=== PATIENT | female | born 1985 | race Caucasian/White ===

== ENCOUNTER 2024-10-16 14:12 | Outpatient (REF) | payer BC, SELFPAY ==
[2024-10-16 14:48] LABS: Albumin* 4.6 g/dL (3.3-5.0)
[2024-10-16 14:51] LABS: Alanine Aminotransferase* 15 U/L (4-35); Alkaline Phosphatase* 61 U/L (40-150); Aspartate Amino Transferase* 24 U/L (12-35); Bilirubin Direct* 0.2 mg/dL (0.0-0.5); Bilirubin Total* 0.4 mg/dL (0.1-1.5); Creatinine* 0.8 mg/dL (0.5-1.5); Estimated Glomerular Filt Rate 97 ml/min; Total Protein* 7.7 g/dL (6.0-8.3)
--- OUTSIDE RECORDS SUMMARY | 2024-10-17 00:19 | XMS_ITS | Encounter Summary ---
Author Organization [facility] Address [facility] hospital0 [place] [address] Care Team Providers Care Turn Down Worker Name Role Phone [facility] Primary Care Provide r Encounter Details Date Type Department Care Team (Late st Contact Info) Description 12/31/2013 [facility] Only [facility] [address] [place] [phone] Noemy Servin MD [facility] [address] [facility] [address] [place] [address] Localization-related (focal) (partial) epilepsy and epileptic syndromes with complex partial seizures, with intractable epilepsy (Primary Dx) Social History Tobacco Use Types Packs/Day Years Used Date Smoking Tobacco: Never Assessed Comments Unknown Sex and Gender Information Value Date Recorded Sex Assigned at Not on file Legal Sex Female 1:45 PM IS ARCHITECT Gender Identity Not on file Sexual Orientation Not on file documented as of this encounter Plan of Treatment Not on file documented as of this encounter Visit Diagnoses Diagnosis Localization-related (focal) (partial) epilepsy and epileptic syndromes with complex partial seizures, with intractable epilepsy- Primary documented in this encounter Care Teams Turn Down Worker Relationship Specialty Start Date End Date [facility], [facility] [address] [place] [address] PCP - General 01/08/15 documented as of this encounter
--- OUTSIDE RECORDS SUMMARY | 2024-10-17 00:19 | XMS_ITS | Clinical Summary ---
Author Organization [place] Address [address] [place], [place] [address] [address] Care Team Providers Care Air Analysis Technician Name Role Phone Clinic, [facility] Primary Care Provide r Allergies Active Allergy Reactions Criticality Noted Date Comments Carbamazepine Muscle Pain (Myalgia) 03/24/2016 Cefprozil GI Disturbance 03/24/2016 Penicillins Hives,Itching 03/24/2016 Sulfa Antibiotics Itching 03/24/2016 Sulfamethoxazole-Trimethoprim GI Disturbance Medications amphetamine-dex troamphetamine (ADDERALL) 20 MG tablet Take 20 mg by mouth. 09/24/2023 Active escitalopram (LEXAPRO) 20 MG tablet Take 20 mg by mouth daily. 02/21/2023 Active levonorgestrel (MIRENA, 52 MG,) 52 MG (20 mcg/day) IUD 20 Intra Uterine Devices. Active benzonatate (TESSALON) 100 MG capsule Take 100 mg by mouth. 11/28/2023 Active lamoTRIgine (LAMICTAL) 200 MG TBDP ODT tab Take by mouth 2 times daily. Active levETIRAcetam (KEPPRA) 500 MG tablet Take 500 mg by mouth 2 times daily. 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 Gender Identity Not on file Sexual Orientation Not on file Last Filed Vital Signs Vital Sign Reading Time Taken Comments Blood Pressure 116/73 01/12/2024 4:18 PM PLASTER MACHINE TENDER Pulse 72 01/12/2024 4:18 PM PLASTER MACHINE TENDER Temperature 36.6 C (97.9 F) 01/12/2024 4:18 PM PLASTER MACHINE TENDER Respiratory Rate - - Oxygen Saturation 98% 01/12/2024 4:18 PM PLASTER MACHINE TENDER Inhaled Oxygen Concentration - - Weight - - Height - - Body Mass Index - - Plan of Treatment Health Maintenance Due Date Last Done Comments ADVANCE CARE PLANNING 1986 ANNUAL REVIEW OF HM ORDERS 1986 YEARLY PREVENTIVE VISIT 1989 HIV SCREENING 2001 HEPATITIS C SCREENING 2004 HEPATITIS B VACCINE (1 of 3 - 19+ 3-dose series) 2005 PAP 09/10/2007 DIABETES SCREENING 05/16/2018 05/17/2015 COVID-19 VACCINE (4 - 2023-2 5 season) 2023 01/11/2021, 03/22/2020, 02/27/2020 PHQ-2 (once per calendar year) 2024 INFLUENZA VACCINE (#1) 2024 , 12/20/2017, 11/24/2015 DTAP/TDAP/TD VACCINE (3 - Td or Tdap) 06/23/2031 06/22/2021, 03/27/2011, 03/25/2011 ZOSTER VACCINE (1 of 2) 2036 HPV VACCINE (No Doses Required) Completed MENINGITIS VACCINE Aged Out No longer eligible based on patient's age to complete this topic PNEUMOCOCCAL VACCINE: PEDIATRICS (0 to 5 YEARS) AND AT-RISK PATIENTS (6 to 49 YEARS) Aged Out No longer eligible b ased on patient's age to complete this topic Procedures Procedure Name Priority Date/Time Associated Diagnosis Comments COMPREHENSIVE METABOLIC PANEL Routine 05/17/2015 2:05 PM CDT Need for other prophylactic chemotherapy(V07.39) Cryptogenic partial complex epilepsy (H) from Last 3 Months or Most Recently Relevant to Health Maintenance Results * (ABNORMAL) Comprehensive metabolic panel (05/17/2015 2:05 PM CDT) Sodium 141 133 - 144 mmol/L [facility] Potassium 3.8 3.4 - 5.3 mmol/L [facility] Chloride 106 94 - 109 mmol/L [facility] Carbon Dioxide 30 20 - 32 mmol/L [facility] Anion Gap 5 3 - 14 mmol/L [facility] Glucose 66(L) 70 - 99 mg/dL [facility] Urea Nitrogen 11 7 - 30 mg/dL [facility] Creatinine 0.80 0.52 - 1.04 mg/dL [facility] GFR Estimate 85 >60 mL/min/1. 7m2 [facility] Comment:Non GFR Calc GFR Estimate If Black >90 GFR Calc >60 mL/min/1. 7m2 [facility] Calcium 9.1 8.5 - 10.1 mg/dL [facility] Bilirubin Total 0.3 0.2 - 1.3 mg/dL [facility] Albumin 3.9 3.4 - 5.0 g/dL [facility] Protein Total 7.4 6.8 - 8.8 g/dL [facility] Alkaline Phosphatase 72 40 - 150 U/L [facility] ALT 32 0 - 50 U/L [facility] AST 25 0 - 45 U/L [facility] Blood specimen (specimen) 05/17/2015 2:05 PM CDT 05/17/2015 2:12 PM CDT us Noemy Servin MD LAB - BLOOD ORDERABLE S Final Result [facility] [address] [place] [address], [facility] [phone] from Last 3 Months or Most Recently Relevant to Health Maintenance Insurance [facility] OUT [facility] STATE Care Teams Air Analysis Technician Relationship Specialty Start Date End Date [facility], [facility] [address] [place], [place] [phone] PCP - General 01/08/15
--- OUTSIDE RECORDS SUMMARY | 2024-10-17 00:19 | XMS_ITS | Clinical Summary ---
Author Organization [facility] Address [address] [place] [address] Care Team Providers Care Social And Human Services Assistant Name Role Phone Lisandra Palafox M.D. Primary Care Provider [phone] Source Comments Patient records contain information from all sites at [facility]. For routine questions regarding patient records, call [phone] during business hours, M-F 8:00 AM - 5:00 PM Central Time. Record requests for emergency care only can be directed to [phone] at any time.[facility] Allergies Active Allergy Reactions Criticality Noted Date Comments Amoxicillin Hives (Reselect Reaction) 7 Carbamazepine Myalgia 03/24/2016 Cefprozil GI intolerance 03/24/2016 Penicillins Itching 03/24/2016 Sulfa (Sulfonamide Antibiotics) Itching 03/24/2016 Sulfamethoxazole-Trimethopri m GI intolerance 03/24/2016 Medications * This document contains information received from the source organization and may not represent a complete record from that organization. lamoTRIgine (for_LaMICtal) 200 mg tablet Take 1 tablet by mouth 3 (three) times a day. 03/24/2016 Active levETIRAcetam (KEPPRA) 500 mg tablet Take 2 tablets by mouth 3 (three) times a day. 03/24/2016 Active LORazepam (for_ATIVAN) 1 mg tablet as needed. Only takes it if seizure lasts longer then two minutes 0 10/03/2016 Active levonorgestreL (Mirena) 20 mcg/24 hours (7 yrs) 52 mg IUD 20 Intra Uterine Devices. Active escitalopram (LEXAPRO) 20 mg tabletIndication s:Depression Major Recurrent Full Remission Take 1 tablet (20 mg total) by mouth daily. 90 tablet 3 02/21/2023 Active dextroamphetamin e-amphetamine (AdderalL) 20 mg tabletIndication s:Attention Deficit Disorder Inattentive Take 1 tablet (20 mg total) by mouth 2 (two) times a day. 60 tablet 11/23/2023 Active dextroamphetamin e-amphetamine (AdderalL) 20 mg tabletIndication s:Attention Deficit Disorder Inattentive Take 1 tablet (20 mg total) by mouth 2 (two) times a day. 60 tablet 10/25/2023 Active dextroamphetamin e-amphetamine (AdderalL) 20 mg tabletIndication s:Attention Deficit Disorder Inattentive Take 1 tablet (20 mg total) by mouth 2 (two) times a day. 60 tablet 09/24/2023 Active benzonatate (Tessalon Perles) 100 mg capsule Take 1 capsule (100 mg total) by mouth 3 (three) times a day as needed for cough. 21 capsule 1 11/28/2023 Active Active Problems Problem Noted Date Diagnosed Date Depression Major Recurrent Full Remission 2023 Seizure Disorder 11/08/2022 Overview (11/08/2022): Dr. 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 11/08/2022 Attention Deficit Disorder Inattentive 7 Resolved Problems Problem Noted Date Diagnosed Date Resolved Date Seizure Disorder 06/25/2018 11/08/2022 Immunizations Immunization Administration Dates Next Due DTaP (Daptacel) 03/27/2011 Influenza, Injectable, Quadrivalent 01/03/2021 Influenza, Unspecified 12/20/2017,11/24/2015 Tdap 06/22/2021,03/25/2011 Social History Tobacco Use Types Packs/Day Years Used Date Smoking Tobacco: Former Cigarettes Q uit: 01/12/2011 Smokeless Tobacco: Never Tobacco Cessation:Counseling Given: Not Answered Alcohol Use Standard Drinks/Week Comments Yes 2 (1 standard drink = 0.6 oz pur e alcohol) [facility] Utilities Answer Date Recorded In the past 12 months has e electric, gas, oil, or water company threatened to shut off services in your home? No 11/28/2023 Humiliation, Afraid, Rape, and Kick questionnair e Answer Date Recorded Within the last year, have y ou been afraid of your partner or ex-partner? No 06/21/2021 Within the last year, have y ou been humiliated or emotionally abused in other ways by your partner or ex-partner? No Within the last year, have y ou been kicked, hit, slapped, or otherwise physically hurt by your partner or ex-partner? No 06/21/2021 Within the last year, have y ou been raped or forced to have any kind of sexual activity by your partner or ex-partner? No 06/21/2021 Hunger Vital Sign Answer Date Recorded Within the past 12 months, y ou worried that your food would run out before you got the money to buy more. Never true 11/28/19 24 Within the past 12 months, t he food you bought just didn't last and you didn't have money to get more. Never true 11/28/2023 PRAPARE - Transportation Answer Date Re corded In the past 12 months, has l ack of transportation kept you from medical appointments or from getting medications? No 10/2023 In the past 12 months, has l ack of transportation kept you from meetings, work, or from getting things needed for daily living? No 11/28/2023 Depression Answer Date Recor ded PHQ-9 Total Score (max 27) 4 09/23 Housing Stability Answer Date Recorded What is your living situation today? [facility] have [facility] place to live 11/28/2023 Education Answer Date Recorded What is the highest level of school you have completed or the highest degree you have received? Associate degree: occupational, technical, or vocational program 06/01/2020 Comments No Sex and Gender Information Value Date Recorded Sex Assigned at Female 11/01/2022 9:36 AM CDT Legal Sex Female 11:33 PM EDUCATIONAL ASSISTANT TEACHER Gender Identity Female 11/01/2022 9:36 AM CDT Sexual Orientation Not on file Last Filed Vital Signs Vital Sign Reading Time Taken Comments Blood Pressure 103/67 11/28/2023 10:20 AM CDT Pulse 69 11/28/2023 10:20 AM CDT Temperature 36.8 C (98.2 F) 11/28/2023 10:20 AM CDT Respiratory Rate 14 02/21/2023 9:49 AM EDUCATIONAL ASSISTANT TEACHER Oxygen Saturation 98% 09/24/2023 12:50 PM CDT Inhaled Oxygen Concentration - - Weight 65.6 kg (144 lb 10 oz) 11/28/2023 10:20 A M CDT Height 167 cm (5' 5.75) 09/24/2023 12:50 PM CDT Body Mass Index 23.52 09/24/2023 12:50 PM CDT Plan of Treatment Health Maintenance Due Date Last Done Comments HIV Screening 1986 Hepatitis C Screening 1986 Hepatitis B Vaccines (1 of 3 - 19+ 3-dose series) 2005 HPV Vaccines (1 - 3-dose SCD M series) 2013 COVID-19 Vaccine ( - 2023-2 5 season) 2023 01/11/2021, 03/22/2020, 02/27/2020 Depression Monitoring (PHQ-9) 01/24/2024 09/24/2023 Depression Monitoring (PHQ-9 for quality tracking) 02/20/2024 Influenza Vaccine (#1) 2024 , 12/20/2017, 11/24/2015 Cervical/Vaginal Cancer Screening 05/10/2026 05/10/2021 (Performed elsewhere) Lipid (Cholesterol) Screening 11/09/2027 11/08/2022 DTaP,Tdap,and Td Vaccines (4 - Td or Tdap) 06/23/2031 06/22/2021, 03/27/2011, 03/25/2011 IPV Vaccines Aged Out No longer eligi ble based on patient's age to complete this topic Pneumococcal vaccine (0-49 years) Aged Out No longer eligible b ased on patient's age to complete this topic Medical Devices Implanted Type Area Farm Appraiser Device Identifier Shelf Expiration Date Model / Serial / Lot Intrauterine Device Intrauterine Device Cervix Procedures Procedure Name Priority Date/Time Associated Diagnosis Comments LIPID PANEL, S Routine 11/08/2022 11:06 AM CDT Screening Lipid from Last 3 Months or Most Recently Relevant to Health Maintenance Results * Lipid Panel (11/08/2022 11:06 AM CDT) Triglycerides 77 mg/dL 11/08/2022 11:25 AM CDT [facility] Comment: ----REFERENCE VALUE---- Normal: <150 mg/dL Borderline High: 150-199 mg/dL High: 200-499 mg/dL Very High: > or =500 mg/dL Cholesterol, Total 179 mg/dL 2022 11:25 AM CDT [facility] Comment: ----REFERENCE VALUE---- Desirable: < 200 mg/dL Borderline High: 200 - 239 mg/dL High: > or = 240 mg/dL Cholesterol, LDL, Calculated 109 mg/dL 11/08/2022 11:25 AM CDT [facility] Comment: ----REFERENCE VALUE---- Desirable: <100 mg/dL Above Desirable: 100-129 mg/dL Borderline High: 130-159 mg/dL High: 160-189 mg/dL Very High: >=190 mg/dL ----ADDITIONAL INFORMATION---- LDL cholesterol calculated using the Mcdonald/NIH equation. Cholesterol, HDL 56 >=50 mg/dL 11/09/19 11:25 AM CDT [facility] Cholesterol, Non-HDL, Calculated 123 mg/dL 11/08/2022 11:25 AM CDT [facility] Comment: ----REFERENCE VALUE---- Desirable: <130 mg/dL Above Desirable: 130-159 mg/dL Borderline High: 160-189 mg/dL High: 190-219 mg/dL Very High: > or =220 mg/dL Fasting (8 HR or more) Yes 11/08/2022 11:07 AM CDT [facility] Blood (Blood, Venous) 11/08/2022 11:06 AM CDT 11/08/2022 11:07 AM CDT us Romeo Montse M.D., Ph.D. LAB BLOOD ADD-ON Final Result [facility] [address] [place] [address], [email or web address]FL [facility] in [address] [address] from Last 3 Months or Most Recently Relevant to Health Maintenance Insurance [facility] Care Teams Social And Human Services Assistant Relationship Specialty Start Date End Date Lisandra Palafox M.D. [address] [place] [address] [place] [phone] PCP - General 07/06/23
--- OUTSIDE RECORDS SUMMARY | 2024-10-17 00:19 | XMS_ITS | Clinical Summary ---
Author Organization [employer] [facility] Address [address] [place] [address] Care Team Providers Care Rn Triage Name Role Phone Pcp, No Primary Care Provider Unavailabl e Social History Tobacco Use Types Packs/Day Years Used Date Smoking Tobacco: Never Assessed Comments Unknown Sex and Gender Information Value Date Recorded Sex Assigned at Not on file Legal Sex Female 8:02 AM MANAGER WELLNESS Gender Identity Not on file Sexual Orientation Not on file Plan of Treatment Not on file Insurance [facility] Care Teams Rn Triage Relationship Specialty Start Date End Date PcpSandra PCP - General 02/02/10
== END 2024-10-16 14:13 | disposition home or self-care (01) ==
LOC: NPINS 14:12
PROVIDERS: Visit Provider Psychiatry & Neurology Clinical Neurophysiology
DX: Z79.899 Other long term (current) drug therapy (principal)
CPT/HCPCS: 80076; 80175; 80177; 82565

== ENCOUNTER 2024-11-17 21:16 | Emergency (ER) | payer BC, SELFPAY ==
--- OUTSIDE RECORDS SUMMARY | 2024-11-17 21:18 | XMS_ITS | Clinical Summary ---
Author Organization [employer] [facility] Address [address] [place] [address] Care Team Providers Care Quality Assurance Tester Name Role Phone Pcp, No Primary Care Provider Unavailabl e Social History Tobacco Use Types Packs/Day Years Used Date Smoking Tobacco: Never Assessed Comments Unknown Sex and Gender Information Value Date Recorded Sex Assigned at Not on file Legal Sex Female 8:02 AM PROP ATTENDANT Gender Identity Not on file Sexual Orientation Not on file Plan of Treatment Not on file Insurance [facility] Care Teams Quality Assurance Tester Relationship Specialty Start Date End Date PcpSandra PCP - General 02/02/10
--- OUTSIDE RECORDS SUMMARY | 2024-11-17 21:18 | XMS_ITS | Encounter Summary ---
Author Organization [facility] Address [facility] [place] [address] Care Team Providers Care Electronic Parts Salesperson Name Role Phone [facility], [facility] Primary Care Provide r Encounter Details Date Type Department Care Team (Late st Contact Info) Description 12/31/2013 [facility] Only [facility] [address] [place] [phone] Noemy Servin MD [facility] [address] [facility] [address] [place] [address] Localization-related (focal) (partial) epilepsy and epileptic syndromes with complex partial seizures, with intractable epilepsy (Primary Dx) Social History Tobacco Use Types Packs/Day Years Used Date Smoking Tobacco: Never Assessed Comments Unknown Sex and Gender Information Value Date Recorded Sex Assigned at Not on file Legal Sex Female 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
--- OUTSIDE RECORDS SUMMARY | 2024-11-17 21:18 | XMS_ITS | Clinical Summary ---
Author Organization [facility] Address [address] [place], [place] [address]. 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 Gender Identity Not on file Sexual Orientation Not on file Last Filed Vital Signs Vital Sign Reading Time Taken Comments Blood Pressure 116/73 01/12/2024 4:18 PM BULKHEAD CARPENTER Pulse 72 01/12/2024 4:18 PM BULKHEAD CARPENTER Temperature 36.6 C (97.9 F) 01/12/2024 4:18 PM BULKHEAD CARPENTER Respiratory Rate - - Oxygen Saturation 98% 01/12/2024 4:18 PM BULKHEAD CARPENTER Inhaled Oxygen Concentration - - Weight - [...] 2005 PAP 09/10/2007 DIABETES SCREENING 05/16/2018 05/17/2015 PHQ-2 (once per calendar year) 2024 COVID-19 VACCINE (4 - 2024-2 6 season) 2024 01/11/2021, 03/22/2020, 02/27/2020 INFLUENZA VACCINE (#1) 2024 , 12/20/2017, 11/24/2015 [...] CDT) Sodium 141 133 - 144 mmol/L [facility] Potassium 3.8 3.4 - 5.3 mmol/L [facility] Chloride 106 94 - 109 mmol/L [facility] Carbon Dioxide 30 20 - 32 mmol/L [facility] Anion Gap 5 3 - 14 mmol/L [facility] Glucose 66(L) 70 - 99 mg/dL [facility] Urea Nitrogen 11 7 - 30 mg/dL [facility] Creatinine 0.80 0.52 - 1.04 mg/dL [facility] GFR Estimate 85 >60 mL/min/1. 7m2 [facility] Comment:Non GFR Calc GFR Estimate If Black >90 GFR Calc >60 mL/min/1. 7m2 [facility] Calcium 9.1 8.5 - 10.1 mg/dL [facility] Bilirubin Total 0.3 0.2 - 1.3 mg/dL [facility] Albumin 3.9 3.4 - 5.0 g/dL [facility] Protein Total 7.4 6.8 - 8.8 g/dL [facility] Alkaline Phosphatase 72 40 - 150 U/L [facility] ALT 32 0 - 50 U/L [facility] AST 25 0 - 45 U/L [facility] Blood specimen (specimen) 05/17/2015 2:05 PM CDT 05/17/2015 2:12 PM CDT us Noemy Servin MD LAB - BLOOD ORDERABLE S Final Result [facility] [address] [place] [address], [facility] [phone] from Last 3 Months or Most Recently Relevant to Health Maintenance Insurance [facility] Care Teams Consumer Marketing Specialist Relationship Specialty Start Date End Date [facility], [facility] [address] [place], [place] [phone] PCP - General 01/08/15
--- OUTSIDE RECORDS SUMMARY | 2024-11-17 21:18 | XMS_ITS | Data Portability ---
Author Organization [facility] - MANAGER OF CASE MANAGEMENT, [id number] Address [address] [place] [address] Assessment No assessment recorded. Plan of Treatment Reminders Order Date Submit Date Provider Last Modified By Organization Details Last Modified Time Details Appointments None recorded. Lab cytology report, thin prep, smear or scraping, cervical or vaginal 2021 022 [facility], [address] [place], [address], 14:14:01 Referral None recorded. Procedures None recorded. Surgeries None recorded. Imaging None recorded. Medication Orders None recorded. Patient TargetsNo targets recorded. Patient Instructions Encounter Date Encounter Id Patient Instructions Last Modified By Organization Details Last Modified Time 05/10/2021 - Encouraged breast self-awareness and monthly breast exams. - Start annual mammograms at age 40. - Calcium and vitamin D intake discussed. - Encouraged regular exercise. - Discussed cervical cancer screening guidelines. - PCP for non-[facility]CA [facility] concerns -IUD removed/replaced by 06/03/2023 Not available 05/10/2021 12:20:58 Reason for Referral None Reported. Results Created Date Observation Date Name Description Value Unit Range Abnormal Flag Note LastModifiedBy Organization Detail LastModifiedTime 05/11/1905/11/2021 IGP, APTIM A HPV, RFX 16/18 ,45 HPV aptima Negati ve negati ve This nucle ic acid ampli ficat ion test detec ts fourt een high- risk HPV types (16,1 8,31, 33,35 ,39,4 5,51, 52,56 ,58,5 9,66, 68) witho ut diffe renti ation . Not Available [facility] (Lab) [address] [address], [place], [address], 05/12/2021 14:14:01 05/11/19 22 05/12/2021 IGP, APTIM A HPV, RFX 16/18 ,45 interpretati on NILM NEGAT YULISA FOR INTRA EPITH ELIAL LESIO N OR MALIG SUSHILA . Not Available [facility]) [address] [address], [place], [address], 05/12/2021 14:14:01 05/11/19 22 05/12/2021 IGP, APTIM A HPV, RFX 16/18 ,45 category: NIL Negat yulisa for Intra epith elial Lesio n Not Available [facility] ([facility]) [id number] [place] [address], [place], [address], 05/12/2021 14:14:01 05/11/19 22 05/12/2021 IGP, APTIM A HPV, RFX 16/18 ,45 adequacy: ENDO Satis facto ry for evalu ation . Endoc ervic al and/o r squam ous metap lasti c cells (endo cervi meng compo nent) are prese nt. Not Available [facility] ([facility]) [id number] [place] [address], [place], [address], 05/12/2021 14:14:01 05/11/19 22 05/12/2021 IGP, APTIM A HPV, RFX 16/18 ,45 clinician provided ICD10: Sara mckenzie Z01.4 19 Not Available [facility] ([facility]) [id number] [place] [address], [place], [address], 05/12/2021 14:14:01 05/11/19 22 05/12/2021 IGP, APTIM A HPV, RFX 16/18 ,45 performed by: Charlee Luong am (ASCP ) Not Available [facility] ([facility]) [address] [facility] [address], [place], [address], 05/12/2021 14:14:01 05/11/19 22 05/12/2021 IGP, APTIM A HPV, RFX 16/18 ,45 note: Commen t The Pap smear is a scree rajat test desig jose to aid in the detec tion of delphine ligna nt and malig nant condi tions of the uteri ne cervi x. It is not a diagn ostic proce dure and shoul d not be used as the sole means of detec ting cervi meng cance r. Both false -posi tive and false -nega tive repor ts do occur . Not Available [facility] ([facility]) [address] [facility] [address], [place], [address], 05/12/2021 14:14:01 05/11/19 22 05/12/2021 IGP, APTIM A HPV, RFX 16/18 ,45 test methodology: Commen t This liqui d based ThinP rep(R ) pap test was scree jose with the use of an image guide femi goldberg Not Available [facility] ([facility]) [address] [facility] [address], [place], [address], 05/12/2021 14:14:01 Result Notes None recorded. Problems Name Problem SNOMED Code Status Onset Date Resolution Date Notes Provider Name and Address Organization Details Recorded Time Epilepsy 51157437 Active Dr. Clark , [facility] Not Available [facility] 0 01:08:43 Atypical glandular cells on cervical Papanicolaou smear 053756315 Active [facility] *Date Onset: 07/28 Not Available [facility] 0 01:08:43 Problem Notes None recorded. Procedures Surgical History Date Name Laterality Status Provider Name and Address Organization Details Recorded Time 05/11/19 Date of Last Pap Smear completed Giulia AYOU[facility] - [facility] MANAGER OF CASE MANAGEMENT 05/12/2021 15:09:42 06/03/19 17 replacement of intrauterine contraceptive device completed Khushboo A[facility]B - [employer] MANAGER [facility] CASE MANAGEMENT 05/10/2021 08:34:54 05/28/19 11 Remove intrauterine device completed Not Available [facility] 09/29/2019 01:05:09 colposcopy of cervix completed Not Available [facility] 09/29/2019 01:05:09 Insert intrauterine device completed Not Available [facility] 09/29/2019 01:05:09 tooth extraction completed Not Available [facility] 09/29/2019 01:05:09 Imaging Results None recorded. Procedure Notes None recorded. Medical Equipment None Reported. Allergies Allergen ID Allergen Name Allergen Category Reaction Reaction Severity Criticality Documentation Date Start Date Code Code System Note Provider Name and Address Organization Details Recorded Time 448393 Substance with sulfonami de structure and antibacte rial mechanism of action (substanc e) medicatio n Not available Not available Not available 09/26/2019 90989 8003 SNOMED *Note : 06/01 - hives Not Available [facility] 0 16:56:44 637815 Cefzil medicatio n Not available Not available Not available 09/26/2019 67146 1 RxNorm *Note : 06/01 - rash Not Available [facility] 0 16:56:44 881038 Product containin g penicilli n (product) medicatio n Not available Not available Not available 09/26/2019 22880 8001 SNOMED *Note : 06/01 - hives Not Available [facility] 0 16:56:44 125924 Tegretol medicatio n Not available Not available Not available 09/26/2019 92757 9 RxNorm *Note : 06/01 - hives , rash Not Available [facility] 0 16:56:44 Medications Name Sig Start Date Stop Date Status Note LastModified by Organization Details LastModified Time Mirena 21 mcg/24 hr (up to 8 years) 52 mg intrauterin e device Take by intrauter ine route. active Not Available Not Available No t Available lamotrigine 200 mg tablet TAKE 1 TABLET BY MOUTH THREE TIMES DAILY active Not Available Not Available No t Available levetiracet am 500 mg tablet TAKE 2 TABLETS BY MOUTH TWICE DAILY active Not Available Not Available No t Available neomycin-po lymyxin-dex ameth 3.5 mg/mL-10,00 0 unit/mL-0.1 % eye drops SHAKE LIQUID AND INSTILL 1 DROP IN LEFT EYE FOUR TIMES DAILY FOR 5 DAYS 05/10 completed Not Available Not Available Not Available dextroamphe tamine-amph etamine 20 mg tablet active Not Available Not Available No t Available Vitals Date Recorded Body height Body mass index (BMI) Body weight Systolic And Diastolic Provider Name and Address Organization Details Last Updated DateTime 05/10/2021 166.37 cm 22.6 kg/m2 30362.47 g 118/76 mm[Hg] Wilberto Montes (TERMED) [facility] [email or web address] MANAGER OF CASE MANAGEMENT 05/10/2021 11:39:28 Social History Question Answer Notes LastModified by Magin Details LastModified Time Tobacco Smoking Status Former Smoker Former *Qty: 0-1/day Age Start/Stop: AN[facility]RA Antonio MANAGER OF CASE MANAGEMENT 05/10/2021 08:31:15 What Is Your Level Of Caffeine Consumption? Occasional 2/week ytessma Information not available 05/10/2021 Which Illicit Or Recreational Drugs Have You Used? Denies Illicit Substance Abuse Information not available 05/10/2021 Children's Names/ Abraham Davila Information not available 05/10/2021 History Of Domestic Violence No Denies All Domestic Violence Information not available 09/29/2019 What Is Your Relationship Status? Single Information not available 05/10/2021 Sex: Unknown Functional Status Question Answer Note LastModified by Magin Details LastModified Time Do you use any illicit or recreational drugs? No Information not available 05/10/2021 What is your level of alcohol consumption? None Former Information not available 05/10/2021 What is your occupation? Denies knowledge of exposure to hazardous substances Information not available 09/29/2019 What is your exercise level? Moderate Moderate Amount of Exercise (1-3 times weekly) *Note: runs and bikes Information not available 09/29/2019 Mental Status None recorded. Family History Relationship Description Onset Age of this Age Resolved Age Notes LastModified by Organization Details LastModified Time Unspecified Relation Diabetes mellitus Aunt Not available 2021 08:30:27 Medical History Condition Response Neurology-Other Y Gynecological History Statement/Question Response Current Control Method IUD History of Abnormal PAP Y Date of Last Pap Smear 05/10/2021 Age at Menarche: 16 HPV Test Negative Obstetrics History GPAL:G 2 P 2 0 0 2 Type Value Multiple Births 0 Full Term 2 Induced 0 Spontaneous 0 Premature 0 Living 2 Ectopics 0 Total 2 Immunizations Vaccine Type Date Status Note Provider Nam e and Address Organization Details Recorded Time Tdap 03/25/2011 completed Not Available [facility] 09/29/2019 01:10:06 Tdap 03/25/2011 completed Not Available [facility] 09/29/2019 01:10:06 Past Encounters Encounter ID Performer Location Encounter Start Date Encounter Closed Date Diagnosis/Indication Diagnosis SNOMED-CT Code Diagnosis ICD10 Code Diagnosis IMO Codes Diagnosis Note [id number] FLORENCIO SAAVEDRA-FARHANA [id number] THDALE_BU [facility] [address] [place] [address] 05/10/2021 11:34:17 05/10/2021 12:27:50 Gynecologic examination 69158427 Z01.419 Surve[place] ce of contraception 919231118 Z30.40 Health Concerns Section Related Observation LastModified by Organization Detai ls LastModified Time None Recorded Concern Status LastModified by Organization Details LastModified Time None Recorded Advance Directives Directive None Recorded Payers Insurance Date Sequence Insurance Name Policy Number Policy [place] Covered Member ID [place] Member ID Guarantor Name 05/10/2021 1 [place] [id number] Nolberto Santos [id number] Margarita Santos Notes Date Note Type Note Provider Name and Address Organization Details Recorded Time 05/10/2021 text/html ANNUAL GYNECOLOGIC EXAM This patient presents today for an annual gynecologic exam. Her periods are infrequent secondary to hormonal contraceptive use. She reports no dysmenorrhea. She reports no changes to breasts. The patient denies vaginal itching and burning. The patient's past medical and surgical history were reviewed again today. The medication and allergy list was made current. SEXUAL HISTORY She is sexually active. The patient is using contraception to prevent . The patient states that she is satisfied with her current method of control. She denies new partners since last visit. She reports feeling safe in her relationships. The patient declines STD testing today. HEALTHCARE MAINTENANCE The patient's last pap smear was 5 years ago. I reviewed with the patient today ASCCP guidelines for recommended frequency of pap smear testing. The patient expressed understanding. The HPV vaccine is not indicated in this patient. Her CAGE screen was negative. The patient's depression screening PHQ-2 Score is 0 and the JAMEY-7 is 0. The patient has no additional complaints. Sons are 16 and 10, doing well. Happy with Mirena IUD, discussed now approved for 7 years of contraceptive use. Placed 06/02/16. PCP- Curt Ballesteros [facility]. [facility] [address], [place], [address], [place] - [employer] MANAGER OF CASE MANAGEMENT 05/10/2021 12:21:41 OBGyn Episode Ob Episode Information Episode Created Date Number of Fetuses Patient Bloodtype Patient rh Status Prepregnancy Weight lbs Domestic Partner Domestic Partner Phone Father Name Radiotelegraph Operator Status 05/11/19 22 1 CLOSED Fetus Data First Name Last Name Admitted to NICU Weight (g) Sex Living Outcome Pediatric Complications Fetus ID Race Codes Race Delivery Type 4110.45 0704 M Full Term [id number] Sabino Calculation Initial Sabino Date Initial Exam Date Initial Exam Provider Initial Ultrasound Date Last Menstrual Period Date Ultra Sound Weeks Gestation 0 Eighteen To Twenty Week Sabino Update Ultra Sound Date Fundal Height At Umbil Quickening Date Ultra Sound Latest Weeks Gestation Final Sabino Confirmed By Final Sabino Confirmed Date Final Sabino Date Ultra Sound Latest Days Gestation 0 0 Menstrual History Last Menstrual Date Menses Monthly On Bcp Conception Prior Menses Frequency Hcg Plus Date Menarche Onset Age Delivery Information Delivery Date Delivery Type Labor Anesthesia Weeks Gestation Incision Type Labor Labor Length Hrs Delivered By Post Complications Tubal Sterilization Discharge Date Comments 2 Regional-Ep idural 39 IOL For Polyhydra ira -Dr Rajwinder szymanski Discharge Information Feeding Method Contraceptive Method Maternal HG B and HCT Levels Ob Episode Information Episode Created Date Number of Fetuses Patient Bloodtype Patient rh Status Prepregnancy Weight lbs Domestic Partner Domestic Partner Phone Father Name Radiotelegraph Operator Status 05/11/19 22 1 CLOSED Fetus Data First Name Last Name Admitted to NICU Weight (g) Sex Living Outcome Pediatric Complications Fetus ID Race Codes Race Delivery Type 3572.03 7 M Full Term [id number] Sabino Calculation Initial Sabino Date Initial Exam Date Initial Exam Provider Initial Ultrasound Date Last Menstrual Period Date Ultra Sound Weeks Gestation 0 Eighteen To Twenty Week Sabino Update Ultra Sound Date Fundal Height At Umbil Quickening Date Ultra Sound Latest Weeks Gestation Final Sabino Confirmed By Final Sabino Confirmed Date Final Sabino Date Ultra Sound Latest Days Gestation 0 0 Menstrual History Last Menstrual Date Menses Monthly On Bcp Conception Prior Menses Frequency Hcg Plus Date Menarche Onset Age Delivery Information Delivery Date Delivery Type Labor Anesthesia Weeks Gestation Incision Type Labor Labor Length Hrs Delivered By Post Complications Tubal Sterilization Discharge Date Comments 6 40 SX Disorder, PTL, Terb Pump Discharge Information Feeding Method Contraceptive Method Maternal HG B and HCT Levels
[2024-11-17 21:28] VITALS: BP 115/77; PULSE 80; RESP 16; TEMP 36.7; O2SAT 98; BMI 24.6
[2024-11-17 21:34] LABS: Appearance Urine Slightly Cloudy (Clear)
[2024-11-17] MEDS: PHENAZOPYRIDINE HCL 200 MG TABLET PO (21:58)
--- NOTE | 2024-11-17 21:58 | ED_ITS ---
HPI - Female Genitourinary General Chief complaint: Urogenital Problems, Female Stated complaint: possible uti Time Seen by Provider: 11/17/24 21:54 Source: patient and RN notes reviewed Mode of arrival: ambulatory Limitations: no limitations History of Present Illness HPI Narrative: Margarita is a very pleasant 39-year-old female who adamantly denies , currently has Merina, who noted the onset of painful urination early this morning. Notes that she has had decreased urine production and urinary frequency with only a little amount that she is able to go. She felt like she had chills this morning but no fever. No vomiting denies any back pain. Her discomfort is mainly in her lower pelvic area. She was sexually active about 3 days ago. She has not been someone to get very many UTIs. She has multiple medication allergies. Related Data Home Medications ?Medication ?Instructions ?Recorded ?Confirmed dextroamphetamine-amphetamine 20 1 tab PO BID 10/02/24 10/02/24 mg tablet lamotrigine 200 mg tablet mg PO 10/02/24 10/02/24 levetiracetam 500 mg tablet mg PO 10/02/24 10/02/24 Allergies Allergy/AdvReac Type Severity Reaction Status Date / Time carbamazepine (From Tegretol) Allergy Verified 11/17/24 21:31 cefprozil (From Cefzil) Allergy Verified 11/17/24 21:31 Penicillins Allergy Verified 11/17/24 21:31 sulfamethoxazole (From Allergy Verified 11/17/24 21:31 Septra) trimethoprim (From Septra) Allergy Verified 11/17/24 21:31 Review of Systems Status of ROS: Reports: 10 or more systems reviewed and unremarkable except as noted in History and below Const: Denies: fever or chills Cardio: Denies: chest pain or shortness of breath with exertion Resp: Denies: shortness of breath GI: Reports: abdominal pain; Denies: nausea or vomiting : Reports: painful urination, urinary frequency and urinary urgency; Denies: blood in urine Musculo: Denies: back pain PFSH PFSH Social History Smoking Status: Never smoker How often do you have a drink containing alcohol: never AUDIT-C Alcohol total score: 0 Non-prescribed substance use: denies use Exam Narrative: Exam Narrative: Patient is alert and oriented. No acute distress. External ears eyes nose clear. Heart with regular rate and rhythm and lungs are clear. No CVA tenderness with percussion. Abdomen is soft. Moving all extremities. Const: Vital Signs, click to edit/add: Vital Signs - 24 hr 11/17/24 21:28 Temperature 98.0 F Pulse Rate [Pulse Oximeter] 80 Respiratory Rate 16 Blood Pressure [Ri ght Upper Arm] 115/77 Pulse Oximetry 98 Oxygen Delivery Me thod Room Air Documenting provider has reviewed patient's vital signs: yes Course Course ED Course: Differential diagnosis includes was not limited to kidney stone, UTI, PID. At this time patient does not appear to have vaginal discharge and symptoms are consistent with UTI. No evidence of sepsis at this time with reassuring vital signs and lack of fever. Urinalysis has already been ordered by nursing staff. Vital Signs Vital signs: Initial Vital Signs Temperature 98.0 F 11/17/24 21:28 Temperature Source Temporal Artery Scan 11/17/24 21:28 Pulse Rate 80 11/17/24 21:28 Respiratory Rate 16 11/17/24 21:28 Blood Pressure 115/77 11/17/24 21:28 Blood Pressure Mean 89 11/17/24 21:28 Blood Pressure Position Sitting 11/17/24 21:28 Pulse Oximetry 98 11/17/24 21:28 Oxygen Delivery Method Room Air 11/17/24 21:28 Vital Signs Temperature 98.0 F 11/17/24 21:28 Pulse Rate 80 11/17/24 21:28 Respiratory Rate 16 11/17/24 21:28 Blood Pressure 115/77 11/17/24 21:28 Pulse Oximetry 98 11/17/24 21:28 Oxygen Delivery Method Room Air 11/17/24 21:28 Temperature 98.0 F 11/17/24 21:28 Pulse Rate 80 11/17/24 21:28 Respiratory Rate 16 11/17/24 21:28 Blood Pressure 115/77 11/17/24 21:28 Pulse Oximetry 98 11/17/24 21:28 Oxygen Delivery Method Room Air 11/17/24 21:28 MDM - Female Genitourinary MDM Narrative Medical decision making narrative: 1. UTI-urinalysis interpreted by myself shows suggestion of urinary tract infection with 3+ blood 10-20 RBCs and 2-5 wbc's. There is trace leukocyte esterase. Few bacteria are noted. Nitrate is negative. Will treat with Macrobid 100 mg p.o. b.i.d. x5 days. This medication was sent to [facility]. Will await the official urine culture and modify antibiotic as needed. Recommend pushing fluids. One dose of Pyridium will be given here in the ED to decrease spasm while antibiotic is kicking in. Discussed side effects including staining of the underwear, contacts and bright yellow urine. 2. Disposition-home at this time. Seek medical attention for worsening symptoms especially fever, back pain, vomiting. Medical Records Attestation: I reviewed the patient's medical records. Lab Data Attestation: I reviewed the patient's lab results. Labs: Lab Results 11/17/24 Range/Units 21:30 Urine Color Yellow (Yellow) Urine Appearance Slightly Cloudy A (Clear) Urine pH 7.0 (5.0-8.5) Ur Specific [place] 1.015 (1.000-1.030) Urine Protein 1+ A (Negative) Urine Glucose (UA) Negative (Negative) Urine Ketones Negative (Negative) Urine Blood 3+ A (Negative) Urine Nitrite Negative (Negative) Urine Bilirubin Negative (Negative) Urine Urobilinogen 0.2 (0.2-1.0) Ur Leukocyte Esterase Trace A (Negative) Urine RBC 10-25 A (0-2) Urine WBC 2-5 (0-5) Ur Squamous Epith Cells Few (None-Few) Urine Bacteria Few A (None) Discharge Plan Discharge Clinical Impression: Urinary tract infection Patient Disposition: Home, Self-Care Condition: Unchanged Additional Instructions: Start Macrobid for the treatment of urinary tract infection. I sent this medicine to our vending machine in the front lobby. We will send your urine for a culture-may need to change the antibiotic depending on the results. We will call you if that is the case. The pyridium we gave you would turn your urine bright yellow. Push fluids as much as possible. Seek medical attention for vomiting, worsening pain, fever and as needed. Prescriptions: No Action lamotrigine 200 mg tablet PO levetiracetam 500 mg tablet PO dextroamphetamine-amphetamine 20 mg tablet 1 tab PO BID Follow Up/Referrals: Provider,Not a Local [Primary Care Provider, Family Practice] Stand Alone Forms: [facility] [employer] Info Instructions
[2024-11-17 22:04] VITALS: BP 123/64; PULSE 76; RESP 16; TEMP 36.7; O2SAT 98
== END 2024-11-17 22:09 | disposition home or self-care (01) ==
LOC: ED 22:03
PROVIDERS: Emergency Provider Family Medicine
DX: N39.0 Urinary tract infection, site not specified (principal)
CPT/HCPCS: 81001; 87086; 99283; A9270

== ENCOUNTER 2025-01-14 11:50 | Day surgery (SDC) | payer BC, SELFPAY ==
--- NOTE | 2025-01-14 08:14 | W.PM.PODPROC ---
Date of Procedure: 01/14/25 Time Seen by Provider: 13:09 Surgeon: Neil Mcfarland DPM Co-Surgeon: Dr. Sonia Morgan DPM Pre-op Diagnosis: Right tailor's bunion Post-op Diagnosis: Same Type of Procedure: 1. Tailors bunionectomy with excision of lateral eminence, right Indications: Painful tailors bunion recalcitrant to conservative cares, right foot Procedure Description: The patient was identified prior to being brought back into the operating room using their name and date of as patient identifiers. The intended surgical care plan was then reviewed in detail with the patient as well as rationale for surgery, most common risks, complications, and expected recovery course. The patient was given opportunity to ask questions, which were to the best of my ability. Patient ultimately voiced no questions or concerns and agreed to proceed forward with the surgery as planned. The patient was brought from the preoperative holding area to the operating room, and placed on the operating room table in the supine position. At this time a time-out was performed by myself and operating room staff to identify the proper patient, site and operation to be performed. A well padded pneumatic ankle tourniquet was applied to the patient's operative lower extremity. A field block was performed to the operative foot using 0.25% Marcaine plain. The extremity was then scrubbed, prepped and draped in the normal sterile fashion. Attention was directed to the dorsolateral aspect of the 5th metatarsal, right foot. The planned incision was marked with a pen over the dorsolateral aspect of the right 5th metatarsophalangeal joint. A longitudinal linear incision made through the skin. The incision was carried deep through the subcutaneous tissue. Care was taken to retract and protect all vital neurovascular structures. The subcutaneous tissue was dissected and from the underlying capsule and periosteum and the level of the capsule and periosteum were identified. A longitudinal linear capsular incision was made on the dorsal lateral aspect of the fifth metatarsal. Periosteum and capsule were dissected free from the underlying bone. The lateral prominence to be removed was marked with a pen, and the a sagittal saw was utilized to resect the lateral eminence from the head. A hand rasp was utilized to round off the lateral metatarsal head. Copious irrigation of the incision site was carried out. Capsule and periosteal tissues were re approximated with 2-0 and 3-0 Vicryl in a simple interrupted type suture technique. Skin edges were re-approximated with a 4-0 Nylon in as horizontal mattress type suture technique. Surgical site was infiltrated with 0.75mL of Dexamethasone (4mg/mL). A dry sterile dressing consisting of xeroform nonadhering dressing, gauze, katerin, cast padding and CHELY bandage was applied from forefoot to the ankle. All sponge and instrument counts were correct at the completion of the surgery as well as prior to closure of deep tissue and skin. The patient was transferred from the operating room to the post-anesthesia care unit with vital signs stable and vascular status intact to the operative lower extremity. Anesthesia: MAC Hemostasis: ankle Estimated blood loss (mL): 5 Provider Operated C-arm: 0.005mGY, accumulated dose. 1 image taken and saved Implants: None Specimens: none sent Disposition: PACU
[2025-01-14] MEDS: LACTATED RINGERS 1000 ML 1,000 ML 100 ML IV (12:00)
[2025-01-14 12:05] VITALS: BMI 24.3
[2025-01-14 12:08] VITALS: BP 137/82; PULSE 82; RESP 16; TEMP 36.7; O2SAT 99
[2025-01-14] MEDS: SODIUM CHLORIDE 0.9 % (FLUSH) 10 ML SYRINGE IVF (12:11)
[2025-01-14] MEDS: BUPIVACAINE 0.25% 30 ML INJECTION (12:20)
[2025-01-14] MEDS: CLINDAMYCIN 900 MG/50 ML-D5W 900 MG/50 ML PIGGYBACK 100 MG IVPB (12:26)
[2025-01-14 12:41] LABS: Ur HCG Qualitative* Negative (Negative)
--- NOTE | 2025-01-14 13:01 | SUR.OPER ---
0.75mL OF DEXAMETHASONE (4MG/mL) INJECTED INTO THE OPERATIVE SITE BY DR. MTZ (@13:00).
--- NOTE | 2025-01-14 13:12 | P.ANES_ITS ---
Anesthesia Charges Start Date/Time Anesthesia Start Date: 01/14/25 Anesthesia Start Time: 12:20 Stop Date/Time Anesthesia Stop Date: 01/14/25 Anesthesia Stop Time: 13:13 Coding CPT Codes CPT Codes: ANESTH LOWER LEG BONE SURG - 60426 ([id number]) P2 - PATIENT W/MILD SYST DISEASE, QK - SALES TRADER 2-4 CNCRNT ANES PROC, QX - CHAR PULLER SVC W/ MD MED DIRECTION
--- NOTE | 2025-01-14 13:12 | W.ANESCHARGE ---
Anesthesia Charges Start Date/Time Anesthesia Start Date: 01/14/25 Anesthesia Start Time: 12:20 Stop Date/Time Anesthesia Stop Date: 01/14/25 Anesthesia Stop Time: 13:13 Coding CPT Codes CPT Codes: ANESTH LOWER LEG BONE SURG - 38847 ([id number]) P2 - PATIENT W/MILD SYST DISEASE, QK - DRYING RACK CHANGER 2-4 CNCRNT ANES PROC, QX - AMBULANCE ASSISTANT SVC W/ MD MED DIRECTION
[2025-01-14 13:15] VITALS: BP 103/69; PULSE 76; RESP 14; TEMP 36.8; O2SAT 96
--- NOTE | 2025-01-14 13:17 | P.ANES_ITS ---
Anesthesia Charges Start Date/Time Anesthesia Start Date: 01/14/25 Anesthesia Start Time: 12:20 Stop Date/Time Anesthesia Stop Date: 01/14/25 Anesthesia Stop Time: 13:13 Coding CPT Codes CPT Codes: ANESTH LOWER LEG BONE SURG - 66100 ([id number]) P2 - PATIENT W/MILD SYST DISEASE, QK - CURTAIN DRIER 2-4 CNCRNT ANES PROC, QX - TYPE DISK QUALITY CONTROL SUPERVISOR SVC W/ MD MED DIRECTION
--- NOTE | 2025-01-14 13:17 | W.ANESCHARGE ---
Anesthesia Charges Start Date/Time Anesthesia Start Date: 01/14/25 Anesthesia Start Time: 12:20 Stop Date/Time Anesthesia Stop Date: 01/14/25 Anesthesia Stop Time: 13:13 Coding CPT Codes CPT Codes: ANESTH LOWER LEG BONE SURG - 43039 ([id number]) P2 - PATIENT W/MILD SYST DISEASE, QK - BOOKIE 2-4 CNCRNT ANES PROC, QX - SPECTROSCOPIST SVC W/ MD MED DIRECTION
[2025-01-14 13:30] VITALS: BP 105/64; PULSE 66; RESP 14; O2SAT 95
[2025-01-14 13:45] VITALS: BP 112/75; PULSE 57; RESP 14; O2SAT 100
== END 2025-01-14 14:04 | disposition home or self-care (01) ==
LOC: OR 11:52
PROVIDERS: Anesthesiology; Visit Provider Podiatrist
PROC: (CPT 28292; principal; 2025-01-14 13:15)
DX: M21.621 Bunionette of right foot (principal)
CPT/HCPCS: 28110; 01480; 73620; 76000; 81025; J0665; J0736; J1100; J2405; J2704; J3010; J7120